=== PATIENT | female | born 1980 | race Caucasian/White ===

== ENCOUNTER 2017-08-18 18:55 | Emergency (ER) | payer BC ==
[2017-08-18 19:49] VITALS: BMI 29.7
[2017-08-18] MEDS ORDERED: Lactated Ringer's 1,000 ML IV ONE (19:50)
--- NOTE | 2017-08-18 21:25 | OBHP ---
Datetime: 08/18/2017 20:55 IP Adm Impression: Term, intrauterine ; No Active Labor IP Admit Plan: Observation/Evaluation Admit Comment, IP Provider: Patient seen and evaluated initially at approx 1930 hours 36 y.o. , LMP 11/22/16, CHRISTINA 08/29/17, EGA 38w 3d referred for NST by PMD secondary to elevated F HR in the office, 170bpm. Presently, reports (+) AFM; denies LOF, VB, Ctx. care: Dr. 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 x 4 yrs; together x 15. Medical Doctor Dean Hx: Mother alive 70 no med issues. Father alive 72 - HTN, dyslipidemia. P.E.: as above. Petite, mildly obese in NAD. Awake, alert, oriented to time, person and place. Pl easant and cooperative. present. Assessment: 36 y.o. P0, 38w 3d, for NST. Baseline now 135 bpm. Category 1 tracing. Approximately 35 minutes into evaluation, variable deceleration noted - elsa 70 bpm x 40 seconds with good r ecovery when repositioned to right lateral position. Oxygen by face mask initiated; IVF also adminis tered. Patient had been fully supine when deceleration occurred - probable aorto-caval compression. BP checked: 108/72. monitoring continued for another 40 minutes (+/-), without recurrence. P atient then off the floor for BPP (same ordered on behalf of Dr. Mcdaniel). Addendum: 2115 hours - BPS 8/8; ED 9.64 cm. gray-fundal placenta, cephalic; EFW 7lb 12oz (official report pending) Dr. Mcdaniel is present Pelvic Type - PN: Not Done Extremities - PN: Normal Abdomen - PN: Normal Back - PN: Normal Breast - PN: Not Done Lungs - PN: Normal Heart - PN: Normal Thyroid - PN: Not Done Neurologic - PN: Normal HEENT - PN: Normal General - PN: Normal Presentation-Admit: Vertex FHR - Baseline A Provider: 130 Contraction Comments Provider: irregular Comments, ACOG Physical Exam: Abdomen: Gravid. Soft, non tender All other systems reviewed and are negative Gestation - Est Wks by US: 38w 2d EGA AdmitDate IP: 38.3 Vital Signs Provider: Reviewed; Within Normal Limits IP Chief Complaint: evaluation NICHD Variability Prov Fetus A: Moderate 6-25bpm NICHD Accel Fetus A IP Provider: [id number] NICHD Decel Fetus A IP Provider: Variable Dilatation, Provider: deferred Genitourinary Exam: Not Done DTRs - PN: Not Done
--- NOTE | 2017-08-18 21:40 | US ---
EXAM: US After First Trimester, Transabdominal CLINICAL HISTORY: 36 years old, female; Signs and symptoms; Other: variable decel 38w3d; ; Additional info: variable decel; 38w 3d TECHNIQUE: Real-time transabdominal obstetrical ultrasound of the maternal pelvis and a second or third trimester with image documentation. COMPARISON: No relevant prior studies available. FINDINGS: Fetus: Single live intrauterine gestation. Heart rate: heart rate of 133 beats per minute. Presentation: Vertex. Placenta: Anterior fundal. No placenta previa or abruption. Amniotic fluid: ED = 9.6 cm. Anatomy: No gross anomaly is appreciated. BIOMETRICS Gestational age by US: Estimated gestational age of 38 weeks 3 days by measurements. EFW: Estimated weight of 3504 g. BPD: 9.4 cm, correlating with 38 weeks 2 days. HC: 33.5 cm, correlating with 38 weeks 3 days. AC: 34.6 cm, correlating with 38 weeks 3 days. FL: 7.6 cm, correlating with 38 weeks 4 days. MATERNAL: Uterus: Unremarkable. No myometrial mass. Cervix: No cervical dilatation or effacement. Free fluid: No free fluid. IMPRESSION: 1. Single live intrauterine gestation. EXAM: US Biophysical Profile Without Non-Stress Testing CLINICAL HISTORY: 36 years old, female; Signs and symptoms; Other: variable decel 38w3d; ; Additional info: variable decel; 38w 3d TECHNIQUE: Real-time ultrasound of the maternal pelvis for biophysical profile evaluation with image documentation. COMPARISON: No relevant prior studies available. FINDINGS: breathing movements: Present. Score 2/2. Gross body movements: Present. Score 2/2. tone: Present. Score 2/2. Qualitative amniotic fluid volume: Within normal limits. Score 2/2. IMPRESSION: Normal biophysical profile ultrasound. Score 8/8.
[2017-08-19 02:01] VITALS: BP 107/70; PULSE 91; RESP 18
== END 2017-08-18 21:40 | disposition home or self-care (01) ==
LOC: C.EROB 18:55
DX: Z36.89 Encounter for other specified antenatal screening (principal); Z3A.38 38 weeks gestation of pregnancy
CPT/HCPCS: 76815; 76818; 99283; J7120

== ENCOUNTER 2017-08-21 15:34 | Inpatient (IN) | payer BC ==
--- NOTE | 2017-08-21 15:54 | OBHP ---
Datetime: 08/21/2017 15:48 IP Adm Impression: Term, intrauterine IP Chief Complaint Other: nst IP Admit Plan: Discharge home Admit Comment, IP Provider: at 38+weeks here for NST no ctxs, vb, lof+fm. obhx 2 xsab pmh de med pnv all nkda psh de sochden ve closed a/p at 38+weks here for nst dc home labor given po hyr f/u in 3days Pelvic Type - PN: Adequate Extremities - PN: Normal Abdomen - PN: Normal Back - PN: Normal Breast - PN: Normal Lungs - PN: Normal Heart - PN: Normal Thyroid - PN: Normal Neurologic - PN: Normal HEENT - PN: Normal General - PN: Normal FHR - Baseline A Provider: 150 Contraction Comments Provider: irrg IP Hx Assessment: The History has been Reviewed and is Current Vital Signs Provider: Reviewed; Within Normal Limits NICHD Variability Prov Fetus A: Moderate 6-25bpm NICHD Accel Fetus A IP Provider: [id number] FHR Category Provider Fetus A: Category I Dilatation, Provider: 0 Effacement, Provider: 0 Station, Provider: -3 Genitourinary Exam: Normal DTRs - PN: Normal Datetime: 08/18/2017 20:55 EGA AdmitDate IP: 38.3
[2017-08-21 17:18] VITALS: BMI 30.2
--- NOTE | 2017-08-21 17:25 | OBHP ---
Datetime: 08/21/2017 15:48 Admit Comment, IP Provider: at 38+weeks here for NST no ctxs, vb, lof+fm. obhx 2 xsab pmh de med pnv all nkda psh de sochden ve closed nst 150 mod russel with occ variables a/p at 38+weks here for non reactive NST Admit to l_d npo/ivf labs cont katie and efm Dr Mcdaniel aware and on her way Comments, ACOG Physical Exam: gravid,non tender ext no edema,no calf ten Datetime: 08/18/2017 20:55 EGA AdmitDate IP: 38.3
--- NOTE | 2017-08-21 17:27 | OBADHP ---
Datetime: 08/21/2017 15:48 IP Chief Complaint Other: nst Admit Comment, IP Provider: at 38+weeks here for NST no ctxs, vb, lof+fm. obhx 2 xsab pmh de med pnv all nkda psh de sochden ve closed nst 150 mod russel with occ variables a/p at 38+weks here for non reactive NST Admit to l_d npo/ivf labs cont katie and efm Dr Mcdaniel aware and on her way Pelvic Type - PN: Adequate Extremities - PN: Normal Abdomen - PN: Normal Back - PN: Normal Breast - PN: Normal Lungs - PN: Normal Heart - PN: Normal Thyroid - PN: Normal Neurologic - PN: Normal HEENT - PN: Normal General - PN: Normal FHR - Baseline A Provider: 150 Contraction Comments Provider: irrg Comments, ACOG Physical Exam: gravid,non tender ext no edema,no calf ten IP Hx Assessment: The History has been Reviewed and is Current Vital Signs Provider: Reviewed; Within Normal Limits NICHD Variability Prov Fetus A: Moderate 6-25bpm NICHD Accel Fetus A IP Provider: [id number] FHR Category Provider Fetus A: Category I Dilatation, Provider: 0 Effacement, Provider: 0 Station, Provider: -3 Genitourinary Exam: Normal DTRs - PN: Normal IP Adm Impression: Term, intrauterine Datetime: 08/18/2017 20:55 Presentation-Admit: Vertex Gestation - Est Wks by US: 38w 2d IP Chief Complaint: evaluation NICHD Decel Fetus A IP Provider: Variable EGA AdmitDate IP: 38.3 IP Admit Plan: Observation/Evaluation
[2017-08-21] MEDS ORDERED: Lactated Ringer's 1,000 ML IV SCH (17:30)
[2017-08-21 17:53] LABS: BASO % 0.1 % (0.0-2.0); EOS % 0.7 % (0.0-4.0); HEMOGLOBIN 12.3 g/dL (11.0-16.0); LYMPH # 0.8 K/uL (1.0-4.3); LYMPH % 15.2 % (20.0-40.0); MEAN CELL VOLUME 86.1 fL (81.0-99.0); MEAN CORPUSCULAR HEMOGLOBIN 29.7 pg (27.0-31.0); MEAN CORPUSCULAR HGB CONC 34.4 g/dL (33.0-37.0); MEAN PLATELET VOLUME 9.9 fL (7.2-11.7); MONO # 0.8 K/uL (0.0-0.8); MONO % 15.9 % (0.0-10.0); NEUT # 3.4 K/uL (1.8-7.0); NEUT % 68.1 % (50.0-75.0); NRBC % 0.2 % (0.0-2.0); RBC 4.14 Mil/uL (3.80-5.20); RED CELL DISTRIBUTION WIDTH 16.9 % (11.5-14.5)
[2017-08-21 18:01] LABS: ALBUMIN 3.2 g/dL (3.5-5.0); ALT/SGPT 28 U/L (9-52); AST/SGOT 18 U/L (14-36); BLOOD UREA NITROGEN 5 mg/dL (7-17); CALCIUM 8.3 mg/dl (8.6-10.4); GFR AFRICAN-AMERICAN > 60; GFR NON-AFRICAN AMERICAN > 60
[2017-08-21 18:08] LABS: ALB/GLOB RATIO 1.1 (1.0-2.1)
[2017-08-21] MEDS ORDERED: cefOXitin 2 GM in Sodium Chloride 0.9% 100 ML IVPB ONE (18:51)
[2017-08-21] MEDS ORDERED: Sodium Citrate/Citric Acid 15 ml Sol PO ONE (18:51)
[2017-08-21] MEDS ORDERED: Sodium Citrate/Citric Acid 15 ml Sol ONE (19:06)
[2017-08-21] MEDS ORDERED: Morphine 1 mg/ml preservative-free Inj(Duramorph) ONE (19:20)
[2017-08-21] MEDS ORDERED: Phenylephrine 10 mg/ml Inj ONE ×2 (19:20→20:24)
--- NOTE | 2017-08-21 21:06 | OBDS ---
DELIVERY PERSONNEL Delivery Doctor: dr bryan Pacheco Nurse: Nanette Mayfield Inspector Precision Assembly: Clarisa Cerna RN Anesthesiologist: james MATERNAL INFORMATION Delivery Anesthesia: Spinal Medications in Delivery: pitocn 20 Estimated Blood Loss (ml): 600 Placenta Cultured: No Maternal Complications: Other Other Maternal Complications: nonereasuring fhr Provider Comments: peritoneum closed. fascia from either corner, subcutaneous closed. monocryl for skin LABOR SUMMARY EDC: 08/29/2017 00:00 No. Babies in Womb: 1 Attempted: No Labor Anesthesia: None LABOR INFORMATION Group B Beta Strep: Negative Antibiotics # of Doses: mefoxin 2 grams Steroids Given: None Reason Steroids Not Administered: Not Applicable MEMBRANES Membranes Rupture Method: Artificial Rupture of Membranes: 08/21/2017 20:22 Length of Rupture (hrs): 0.02 Amniotic Fluid Color: Clear Amniotic Fluid Amount: Moderate Amniotic Fluid Odor: Normal STAGES OF LABOR Stage 3 hrs: 0 Stage 3 min: 1 VAGINAL DELIVERY Episiotomy: None Laceration Extension: N/A Laceration Type: None CSECTION DELIVERY Primary Indication: pc/s Other Primary Indication: patient declines trial of labor Secondary Indication: Nonreassuring Status Other Secondary Indication: remote from delivery CSection Urgency: Emergency CSection Incidence: Primary Labor: No Labor Elective: Nonelective CSection Incision: Lower Uterine Transverse Uterine Closure: Double-layer closure BABY A INFORMATION Delivery Date/Time: 08/21/2017 20:23 Method of Delivery: Born in Route : No : N/A Forceps: N/A Vacuum Extraction: N/A Shoulder Dystocia : No SHOULDER DYSTOCIA BABY A Delivery Date/Time: 08/21/2017 20:23 PRESENTATION/POSITION BABY A Presentation: Cephalic Cephalic Presentation: Vertex Breech Presentation: N/A PLACENTA INFORMATION BABY A Placenta Delivery Time : 08/21/2017 20:24 Placenta Method of Delivery: Manual Removal Placenta Status: Retained SCORES BABY A Heart Rate 1 min: >100 bpm Resp Effort 1 min: Good Cry Reflex Irritability 1 min: Cough or Sneeze or Pulls Away Muscle Tone 1 min: Active Motion Color 1 min: Body [place], Extremities Blue Resuscitation Effort 1 min: Tactile Stimulation SCORE 1 MIN: 9 Heart Rate 5 min: >100 bpm Resp Effort 5 min: Good Cry Reflex Irritability 5 min: Cough or Sneeze or Pulls Away Muscle Tone 5 min: Active Motion Color 5 min: Body [place], Extremities Blue SCORE 5 MIN: 9 INFANT INFORMATION BABY A Gestational Age at Delivery: 38.6 Gestational Status: Term Infant Outcome : Liveborn Condition : Stable Infant Sex: Female IDENTIFICATION/MEDS BABY A ID Band Number: [id number] ID Band Location: Left Leg; Left Arm Sensor Applied: Yes Sensor Number: [id number] Sensor Location : Cord Clamp WEIGHT/LENGTH BABY A Birthweight (gms): 3430 Weight (lb): 7 Infant Weight (oz): 9 Infant Length Inches: 20.50 Infant Length cms: 52.1 CORD INFORMATION BABY A No. Cord Vessels: 3 Nuchal Cord : Around Neck x1, Loose Cord Blood Taken: Yes Suction: Mouth; Nose ASSESSMENT BABY A Complications: None Physical Findings at Delivery: Within Normal Limits Respirations: Appears Normal Creative Recruiter/ALS Called : No Infant Care By: kentrell Transferred To: Remains with Mother
[2017-08-21] MEDS ORDERED: Oxycodone/Acetaminophen 5/325 mg Tab PO PRN (21:12)
[2017-08-21] MEDS ORDERED: DiphenhydrAMINE 50 mg/ml Inj ONE (22:35)
[2017-08-21] MEDS ORDERED: DiphenhydrAMINE 50 mg/ml Inj IVP STA (22:50)
[2017-08-22] MEDS ORDERED: DiphenhydrAMINE 50 mg/ml Inj IVP PRN (06:57)
[2017-08-22 08:13] LABS: BASO % 0.2 % (0.0-2.0); EOS % 0.6 % (0.0-4.0); HEMOGLOBIN 11.8 g/dL (11.0-16.0); LYMPH # 0.7 K/uL (1.0-4.3); LYMPH % 10.6 % (20.0-40.0); MEAN CELL VOLUME 86.2 fL (81.0-99.0); MEAN CORPUSCULAR HEMOGLOBIN 30.1 pg (27.0-31.0); MEAN CORPUSCULAR HGB CONC 34.9 g/dL (33.0-37.0); MEAN PLATELET VOLUME 9.7 fL (7.2-11.7); MONO # 0.7 K/uL (0.0-0.8); MONO % 9.7 % (0.0-10.0); NEUT # 5.6 K/uL (1.8-7.0); NEUT % 78.9 % (50.0-75.0); RBC 3.91 Mil/uL (3.80-5.20); RED CELL DISTRIBUTION WIDTH 17.2 % (11.5-14.5)
[2017-08-22] MEDS: Multiple Vitamins Tab PO SCH (09:49)
--- NOTE | 2017-08-22 09:55 | OBPPN ---
Datetime: 08/22/2017 09:52 PP Pain Prov: Within normal limits PP Nausea Prov: Denies PP Flatus Prov: No PP Abdomen/Uterus Prov: Normal PP Lochia Prov: Normal PP Extremities Prov: Normal PP Comments Phys Exam Prov: fudus below umb;icus ext mild edema,no calf ten dressing clean and dry PP Impression Prov: Normal progression PP Plan Prov: Continue present management PP Progress Note Prov: pt was seen at bed siide, pain under control,no n/v, tolerating det, waiting to void ,min lochisa, flatus- pod #1 s/p c/s liquid deit dc millard cont post op care cont pain management encourage ambulation Vital Signs Provider PP: Reviewed; Within Normal Limits
[2017-08-22] MEDS: guaiFENesin 100 mg/5 ml Syrup UD PO PRN ×2 (17:30→21:59)
[2017-08-22] MEDS: Oxycodone/Acetaminophen 5/325 mg Tab PO PRN (21:36)
[2017-08-23] MEDS: guaiFENesin 100 mg/5 ml Syrup UD PO PRN ×3 (08:24→22:26)
[2017-08-23] MEDS: Multiple Vitamins Tab PO SCH (10:03)
--- NOTE | 2017-08-23 12:54 | CP.PCM.PN ---
Subjective - Date & Time of Evaluation Date of Evaluation: 08/23/17 Time of Evaluation: 12:51 - Subjective Subjective: Patient has no c/o tolerating diet, ambulating well, had voided Objective - Vital Signs/Intake and Output Vital Signs (last 24 hours): Temp Pulse Resp BP Pulse Ox 97.4 F L 94 H 18 98/59 L 99 08/23/17 08:00 08/23/17 08:00 08/23/17 08:00 08/23/17 08:00 08/23/17 08:00 - Medications Medications: Current Medications Docusate Sodium (Colace) 100 mg PO BID [facility] Last Admin: 08/23/17 10:02 Dose: 100 mg Guaifenesin (Robitussin) 100 mg PO Q4H PRN PRN Reason: Cough Last Admin: 08/23/17 08:24 Dose: 100 mg Ibuprofen (Motrin Tab) 600 mg PO Q6 PRN PRN Reason: Pain, Mild (1-3) Last Admin: 08/23/17 08:22 Dose: 600 mg Multivitamins (Hexavitamin) 1 tab PO DAILY [facility] Last Admin: 08/23/17 10:03 Dose: 1 tab Oxycodone/Acetaminophen (Percocet 5/325 Mg Tab) 1 tab PO Q4H PRN PRN Reason: Pain, moderate (4-7) Stop: 08/24/17 21:13 Last Admin: 08/22/17 21:36 Dose: 1 tab Oxycodone/Acetaminophen (Percocet 5/325 Mg Tab) 2 tab PO Q4H PRN PRN Reason: Pain, severe (8-10) Stop: 08/24/17 21:13 Last Admin: 08/22/17 09:49 Dose: 2 tab Tetanus/Reduced Diphtheria/Acell Pertussis (Adacel) 0.5 ml IM .ONCE ONE Stop: 08/24/17 23:01 - Labs Labs: 08/22/17 08:04 08/21/17 17:42 - Constitutional Appears: Well - Head Exam Head Exam: ATRAUMATIC, NORMAL INSPECTION, NORMOCEPHALIC - Eye Exam Eye Exam: EOMI, Normal appearance, PERRL Pupil Exam: NORMAL ACCOMODATION, PERRL - ENT Exam ENT Exam: Mucous Membranes Moist, Normal Exam - Neck Exam Neck Exam: Full ROM, Normal Inspection. absent: Lymphadenopathy - Respiratory Exam Respiratory Exam: Clear to Ausculation Bilateral, NORMAL BREATHING PATTERN - Cardiovascular Exam Cardiovascular Exam: REGULAR RHYTHM, +S1, +S2. absent: Murmur - GI/Abdominal Exam GI & Abdominal Exam: Soft, Normal Bowel Sounds. absent: Tenderness - Rectal Exam Rectal Exam: NORMAL INSPECTION - Exam Exam: Circumcision, NORMAL INSPECTION External exam: NORMAL EXTERNAL EXAM Speculum exam: NORMAL SPECULUM EXAM Bimanual exam: NORMAL BIMANUAL EXAM - Extremities Exam Extremities Exam: Full ROM, Normal Capillary Refill, Normal Inspection. absent : Joint Swelling, Pedal Edema - Back Exam Back Exam: NORMAL INSPECTION - Neurological Exam Neurological Exam: Alert, Awake, CN II-XII Intact, Normal Gait, Oriented x3 - Psychiatric Exam Psychiatric exam: Normal Affect, Normal Mood - Skin Skin Exam: Dry, Intact, Normal Color, Warm - Additional Findings Additional findings: Incision: C/D/I Assessment and Plan (1) S/P Status: Acute - Assessment and Plan (Free Text) Assessment: 37 yo S/P Primary LTCS Plan: Clinically stable Possible Discharge home tomorrow
[2017-08-24 07:43] LABS: BASO % 0.3 % (0.0-2.0); EOS # 0.1 K/uL (0.0-0.7); EOS % 1.2 % (0.0-4.0); HEMOGLOBIN 12.9 g/dL (11.0-16.0); LYMPH # 1.1 K/uL (1.0-4.3); MEAN CELL VOLUME 87.5 fL (81.0-99.0); MEAN CORPUSCULAR HEMOGLOBIN 30.1 pg (27.0-31.0); MEAN CORPUSCULAR HGB CONC 34.4 g/dL (33.0-37.0); MEAN PLATELET VOLUME 9.3 fL (7.2-11.7); MONO # 0.5 K/uL (0.0-0.8); MONO % 8.6 % (0.0-10.0); NEUT # 4.5 K/uL (1.8-7.0); NEUT % 71.9 % (50.0-75.0); RBC 4.3 Mil/uL (3.80-5.20); RED CELL DISTRIBUTION WIDTH 16.7 % (11.5-14.5); WHITE BLOOD COUNT 6.3 K/uL (4.8-10.8)
[2017-08-24] MEDS: Multiple Vitamins Tab PO SCH (10:01)
[2017-08-24 10:20] VITALS: BP 93/60
[2017-08-24] MEDS: guaiFENesin 100 mg/5 ml Syrup UD PO PRN (12:51)
[2017-08-24] MEDS: Oxycodone/Acetaminophen 5/325 mg Tab PO PRN (12:59)
[2017-08-24 23:50] VITALS: PULSE 90; RESP 20; TEMP 97.6; O2SAT 98
== END 2017-08-24 19:00 | disposition home or self-care (01) | DRG 766 ==
LOC: C.EROB 15:34 → C.4D 17:22 → C.4M 22:45
PROVIDERS: ADMIT Obstetrics & Gynecology; ATTEND Obstetrics & Gynecology
PROC: 10D00Z1 Extraction of Products of Conception, Low, Open Approach (ICD-10-PCS; principal; 2017-08-21)
DX: O76 Abnormality in fetal heart rate and rhythm complicating labor and delivery (principal); O62.2 Other uterine inertia; O69.81X0 Labor and delivery complicated by cord around neck, without compression, not applicable or unspecified; Z3A.38 38 weeks gestation of pregnancy; Z37.0 Single live birth